=== PATIENT | male | born 1965 | race Caucasian/White ===

== ENCOUNTER 2018-12-08 21:42 | Emergency (ER) | payer OTHER, MEDICAID ==
[~2018-12-08] VITALS: Ht 195.6 cm; Wt 90.7 kg
[2018-12-08] MEDS ORDERED: KLONOPIN2 MG PO (22:07)
[2018-12-08] MEDS ORDERED: DETROL2 M1 PO (22:08)
[2018-12-08] MEDS ORDERED: [UNRECOGNIZED DRUG - OTHER] PO (22:08)
[2018-12-08] MEDS ORDERED: SINGULAIR 10 MG10 M1 PO (22:08)
[2018-12-08 22:40] LABS: ABSOLUTE NEUTROPHILS 4.2 thou/uL (1.4-8.2); BASOPHILS 1.3 % (0.0-2.0); EOSINOPHILS 3.7 % (0.0-3.0); HEMATOCRIT 45.4 % (42.0-52.0); HEMOGLOBIN 15.5 gm/dL (14.0-18.0); MCH 33.7 pg (26.0-34.0); MCHC 34.2 g/dL (28.0-37.0); MCV 98.5 fL (80.0-100.0); MONOCYTES 8.9 % (1.0-8.0); PLATELET COUNT 241 thou/uL (150-400); POLYS 63.1 % (36.0-66.0); RBC 4.61 mil/uL (4.50-6.00); RDW 13.7 % (10.5-14.5); WBC 6.6 thou/uL (4.0-11.0)
[2018-12-08 22:47] LABS: CALCIUM 8.6 mg/dL (8.5-10.1); CREATININE 0.5 mg/dL (0.7-1.3); POTASSIUM 3.3 mmol/L (3.5-5.1)
[2018-12-08 22:54] LABS: ALBUMIN 3.7 g/dL (3.4-5.0); DIRECT BILIRUBIN 0.3 mg/dL (<0.1-0.3); TOTAL BILIRUBIN 2.6 mg/dL (<0.1-1.0); TOTAL PROTEIN 7.2 g/dL (6.4-8.2)
[2018-12-09 01:45] VITALS: BP 136/76
== END 2018-12-09 01:46 | disposition home or self-care (01) ==
LOC: ER 21:42
PROVIDERS: Emergency Medicine
DX: R20.2 Paresthesia of skin (principal); R43.9 Unspecified disturbances of smell and taste; R42 Dizziness and giddiness; Z90.49 Acquired absence of other specified parts of digestive tract